=== PATIENT | female | born 1935 | race African-American/Black ===

== ENCOUNTER → 2017-08-30 | Outpatient (CLI) | payer MEDICAID, MEDICARE ==
--- NOTE | 2017-08-30 22:46 | XCELERA REPORT ---
[address] [address] Lower Extremity Venous Evaluation Name: JEANNE SANTOS Age: 82 yrs Gender: Female : 1935 Patient Status: Outpatient Patient Location: Study Date: 08/30/2017 04:37 PM Procedure: Color flow and duplex imaging of the veins of the left lower extremity as well as the right Common Femoral vein. Reason For Study: LLE PAIN AND SWELLING Ordering Physician: ZAC SANTIAGO Performed By: Cass Donovan Right Sided Venous Evaluation The right common femoral vein is fully compressible. Spontaneous and phasic flow is present in the right common femoral vein. Left Sided Venous Evaluation Normal vessel filling wall to wall, compression and augmentation as well as Colour flow down to the infrageniculate veins. Interpretation Summary No duplex evidence of DVT or obstruction in the left lower extremity nor in the right Common Femoral vein. : ZAC SANTIAGO > Jeremi Alvarez
== END ==
LOC: SP 16:27
PROVIDERS: ATTEND Podiatrist Foot & Ankle Surgery
DX: I82.492 Acute embolism and thrombosis of other specified deep vein of left lower extremity (principal); M79.605 Pain in left leg; M79.89 Other specified soft tissue disorders
CPT/HCPCS: 93971